=== PATIENT | female | born 1945 | race Caucasian/White ===

== ENCOUNTER 2023-08-23 00:38 | Day surgery (SDC) | payer MEDICARE, SELFPAY ==
--- NOTE | 2023-08-16 15:34 | PC.NURSE ---
Report to the Outpatient Waiting Room, entrance under the green pavilion located off [facility], at time ___1130____ on date __08/23/23 . Planned Procedure Time: __1330 . Time changes happen often and if your time is changed the preop area will call you the afternoon before. - You and your visitor will be asked to self-screen and do not enter if you have any COVID symptoms. - A mask is optional within the hospital at this time. Patients may have clear liquids (water, carbonated beverages, clear teas, apple juice) until 3 hours prior to surgery with a maximum of 20 ounces. - No food from midnight until time of surgery - Infants may have breast milk until 4 hours before surgery, formula 6 hours prior to surgery. - Children will be allowed to drink immediately following surgery. If applicable, please bring a bottle or sippy cup to assist with drinking. Juice, water, soda, and popsicles are readily available. For infants on formula, please bring formula the day of surgery. Pacifiers are allowed. Take the following medications with a SIP of water the morning of surgery: __ATENOLOL DO NOT STOP ANY OF YOUR OTHER PRESCRIPTION MEDICATIONS PRIOR TO SURGERY ?EXCEPT THE FOLLOWING Medications to discontinue per physician ____ALL VITAMINS/SUPPLEMENTS 3 DAYS PRE O P.LAST DOSE 08/19/23 Please no make-up, nail lithuanian, hairspray, perfume, deodorant, or body powder the day of surgery. No jewelry (including any body piercings) or valuables the day of surgery, leave them at home. Please take a shower or bath the night before, or the morning of, surgery with an antibacterial soap. Wear comfortable, loose fitting clothing. Children are encouraged to wear pajamas. - Jewelry must be removed prior to entering the operating room. Rings and piercings that are not removed may be cut off. - The hospital will not accept responsibility for valuables. - Please leave all valuables, including medications, at home the day of surgery. If you are going home after surgery, a licensed laundry route driver must drive you home. - NO public transportation without another adult if you receive anesthesia. - We recommend that an adult stay with you for 24 hours following discharge. - We also recommend that you do not drive, make important decision, drink alcoholic beverages, or take any drugs that were not prescribed by your health care provider for at least 24 hours after your discharge time. For Pediatric surgeries, we recommend two adults accompany the child home. Follow any additional instructions given to you from your surgeon. If you or anyone in your household have experienced Covid symptoms in the past week, please notify your surgeon or the nurse liaison at the phone number below for possible testing. Telephone instructions given to __PT and asked if any additional questions and then verbalized understanding. Patient advised to call surgeon office or pre surgery nurse liaison [phone] if any additional questions.
[2023-08-16 15:51] VITALS: BMI 29.6
--- NOTE | 2023-08-20 11:09 | PM.SD2 ---
Same Day Admit/Disch: HPI History of Present Illness Chief complaint: Right Inguinal Hernia Narrative: Luanne Fontanez is a 78 year old female who had noticed a bulge in the right groin back in May. She has had a previous left inguinal hernia done 20 years or more ago. She had also noticed problems with constipation since the hernia appeared. She was seen in the office and found to have a reducible right inguinal hernia. After thorough discussion, patient was prepared for surgery and is taken to the operating room on 08/23/2023 for robotic laparoscopic right inguinal hernia repair with mesh. [facility] Past Medical History Medical History High cholesterol Hypertension Surgical History Surgical History H/O breast surgery S/P cystoscopy S/P inguinal hernia repair S/P shoulder surgery S/P tonsillectomy Family History Family History Mother Carcinoma of colon CHF (congestive heart failure) Social History Social History Smoking status: Never smoker Alcohol intake: current Drinks per week: 1 Living arrangements: with family Spiritual care concerns: No Same Day Admit/Disch: Med Pre-admit Medications Home Medications Medication Instructions Recorded Confirmed Type aspirin 81 mg tablet,delayed 81 mg PO DAILY 04/03/23 08/16/23 History release atenolol 50 mg tablet 50 mg PO DAILY 04/03/23 08/16/23 History calcium carb-Ca gluc 500 mg 1 tablet PO DAILY 04/03/23 08/16/23 History calcium-magnesium ox-Mg gluc 250 mg tablet (Calcium Magnesium) cholecalciferol (vitamin D3) 10 10 mcg PO DAILY 04/03/23 08/16/23 History mcg (400 unit) capsule citalopram 20 mg tablet 20 mg PO QPM 04/03/23 08/16/23 History coenzyme Q10 10 mg capsule (Co 10 mg PO ONCE 04/03/23 08/16/23 History Q-10) diclofenac sodium 1 % topical gel 2 g topical PRN PRN Pain 04/03/23 08/16/23 History fexofenadine 60 mg tablet (Hilaria 60 mg PO DAILY 04/03/23 08/16/23 History Allergy) simvastatin 20 mg tablet 20 mg PO DAILY 04/03/23 08/16/23 History cinnamon bark 500 mg capsule 500 mg PO DAILY 08/16/23 08/16/23 History (Cinnamon) estradiol 2 mg tablet 2 mg PO 2XW 08/16/23 08/16/23 History krill 1,000 mg-omega-3 230 mg-dha 1 cap PO DAILY 08/16/23 08/16/23 History 60 xg-bns-veapitdrc-astaxan capsule (MegaRed [place]-3 Krill Oil) Review of Systems Review of Systems All systems reviewed & are unremarkable except as noted in HPI and below (HPI and those items noted below) Constitutional Constitutional: Denies chills and Denies fever(s) Cardiovascular Cardiovascular: Denies chest pain, Denies diaphoresis, Denies dyspnea and Denies paroxysmal nocturnal dyspnea Respiratory Respiratory: Denies chest congestion, Denies cough and Denies dyspnea Integumentary/Breasts Skin/Breast: Denies lesions and Denies rash Exam Const: General: comfortable, no acute distress, alert and awake HENMT: Head: normocephalic and atraumatic Mouth: Yes Normal oral and palatal mucosa present Eyes: Conjunctivae: conjunctivae normal Pupils: Equal, round and reactive pupils present EOM: EOMs intact bilaterally Neck: Neck: normal visual inspection, no lymphadenopathy and nontender Resp: Effort & Inspection: normal respiratory effort Auscultation: clear to auscultation bilaterally Cardio: Rate: regular rate Rhythm: regular rhythm Heart sounds: no gallops, no murmurs and no rubs GI: Inspection: non-distended, scar (Left inguinal scar) and visible herniation (Right groin area) GI Palp: Yes Soft to palpation, No Tenderness to palpation present (GI), No Guarding due to palpation present (GI), No Hepatomegaly present, No Splenomegaly present, Yes Hernia present (Reducible right inguinal hernia, no hernia on left side), No Palpable mass present, N
[2023-08-23] VITALS (9 sets, daily range): BP systolic 107–172; BP diastolic 58–81; PULSE 64–85; RESP 16–18; TEMP 36.3–37.1; O2SAT 94–100; BMI 29.7
[2023-08-23] MEDS: LACTATED RINGERS 1,000 ML 30 ML IV CONT ×2 (09:30→13:30)
--- NOTE | 2023-08-23 09:53 | WPDANESEPPF ---
Anes - Initial Pre Proc Eval Procedure: Operation Date: 08/23/23 10:30 Proposed Procedures p Robotic Laparoscopic Right Inguinal Hernia Repair with Mesh - Corky Greene MD Date/Time: 08/23/23 09:53 Surgeon: Corky Greene MD Pre Op Diagnosis: Right Inguinal Hernia Patient Data Age: 78 Gender: F Height: 1.65 m Weight: 80.75 kg Allergies Allergy/AdvReac Type Severity Reaction Status Date / Time No Known Allergies Allergy Verified 08/16/23 15:13 Home Medications Medication Instructions Recorded Confirmed Type aspirin 81 mg tablet,delayed 81 mg PO DAILY 04/03/23 08/16/23 History release atenolol 50 mg tablet 50 mg PO DAILY 04/03/23 08/16/23 History calcium carb-Ca gluc 500 mg 1 tablet PO DAILY 04/03/23 08/16/23 History calcium-magnesium ox-Mg gluc 250 mg tablet (Calcium Magnesium) cholecalciferol (vitamin D3) 10 10 mcg PO DAILY 04/03/23 08/16/23 History mcg (400 unit) capsule citalopram 20 mg tablet 20 mg PO QPM 04/03/23 08/16/23 History coenzyme Q10 10 mg capsule (Co 10 mg PO ONCE 04/03/23 08/16/23 History Q-10) diclofenac sodium 1 % topical gel 2 g topical PRN PRN Pain 04/03/23 08/16/23 History fexofenadine 60 mg tablet (Hilaria 60 mg PO DAILY 04/03/23 08/16/23 History Allergy) simvastatin 20 mg tablet 20 mg PO DAILY 04/03/23 08/16/23 History cinnamon bark 500 mg capsule 500 mg PO DAILY 08/16/23 08/16/23 History (Cinnamon) estradiol 2 mg tablet 2 mg PO 2XW 08/16/23 08/16/23 History krill 1,000 mg-omega-3 230 mg-dha 1 cap PO DAILY 08/16/23 08/16/23 History 60 pn-sck-qmwiuvefb-astaxan capsule (MegaRed [place]-3 Krill Oil) Laboratory Tests 08/23/23 09:32 Blood Type Pending Antibody Screen Pending Patient hx anesthesia problems: none Family hx anesthesia problems: none Results Review: All pre-operative results and documents have been reviewed as part of the pre-operative evaluation. PMFSH Past Medical History Medical History High cholesterol Hypertension Surgical History Surgical History H/O breast surgery S/P cystoscopy S/P inguinal hernia repair S/P shoulder surgery S/P tonsillectomy Family History Family History Mother Carcinoma of colon CHF (congestive heart failure) Social History Social History Smoking status: Never smoker Alcohol intake: current Drinks per week: 1 Living arrangements: with family Spiritual care concerns: No Anes - Eval Final PreProcedure Day of Procedure 08/23/23 09:53 Patient weight: overweight Heart: regular rate and rhythm Lungs: clear to auscultation Airway: Mallampati scale class II Neurological: alert and oriented Last oral intake: >/= 8 hours ASA classification: II Emergent: no Anesthetic plan: proceed Anesthesia type and monitoring: general ETT and standard monitoring Results Review: All pre-operative results and documents have been reviewed as part of the pre-operative evaluation. Informed Consent: The patient's anesthetic plan and its attendant risks and benefits were discussed with the patient/family/POA. Questions were solicited and answers provided to the satisfaction of the patient/family/POA.
[2023-08-23] MEDS: KETOROLAC 15 MG/ML VIAL (*BKC) IV PUSH (09:58)
[2023-08-23] MEDS: ACETAMINOPHEN 500 MG TABLET 1000 MG PO (09:58)
--- NOTE | 2023-08-23 10:20 | WPDHPUPDATE1 ---
History and Physical Update Update Date/Time: 08/23/23 10:20 History and Physical has been reviewed, including an updated exam of the patient. There are NO changes in the patient's condition. Risks, benefits, and alternatives have been discussed and questions answered. Patient agrees to proceed with procedure.
[2023-08-23] MEDS: ceFAZolin 2 GM/D5W 50 ML 2 GM/50 ML BAG IVPB (11:24)
[2023-08-23] MEDS: BUPIVACAINE/EPINEPHRINE 0.5% 50 ML VIAL INFILTRATE (11:46)
--- NOTE | 2023-08-23 13:38 | W.PM.PROC2 ---
Procedure Note - Detailed Date of Procedure 08/23/23 Pre-op Diagnosis Right Inguinal Hernia Post-op Diagnosis Same Procedure Performed Robotic laparoscopic repair right inguinal hernia with mesh Surgeon Corky Greene MD Trailer Rental Clerk Kenisha LO Anesthesia General and Local Indications Patient has a longstanding history of a bulge in the right groin. She had been told she has a hernia. It has gotten larger and is now bothersome. She was seen in the office and is taken to surgery now for robotic repair Findings This was a large indirect hernia. Description of Procedure Patient was taken to surgery and induced into general anesthesia. The abdomen was prepped and draped. The anticipated positions of the 3 trocars were marked on the skin. Local was infiltrated into the trocar site that was closest to the umbilicus. Incision was made and the varies needle was introduced. Saline drop technique was used to check for intraperitoneal location. We then insufflated through the varies needle. After adequate distension, and applied Medical 5 mm optical trocar with camera was then placed in the abdominal cavity. We then placed 1st the right sided robotic 8 mm trocar followed by the left-sided 8 mm robotic trocar both under direct visualization. The 5 mm trocar was then removed and replaced with a 3rd robotic trocar of the same size. Patient was placed in Trendelenburg. The robot was brought into the field and position. We docked the robotic arms and then placed the camera in the abdomen. The camera was targeted. We then placed the retractile and dissecting scissor ports. These were positioned appropriately. The surgeon then broke scrub and went to the robotic console. A peritoneal flap was was created starting at about the level of the anterior superior iliac spine. This started last laterally and proceeded medially beyond the epigastric vessels to the median umbilical ligament. The flap was created starting laterally and then proceed eating medially. Once we reached the medial aspect, dissection was carried down close to the rectus abdominus muscle and down to the pubis. Dissection turned back to the lateral aspect and the flap was created further in this area. We then turned our attention to area the hernia. Using traction on the peritoneal flap and the hernia sac, the sac was carefully reduced and dissected free of vascular structures. It was quite a large sac. The round ligament was kept in place. There were some lipomas in the area the sac and these were removed. Eventually the sac was dissected out completely and from the vascular structures posterior to the indirect defect. I then ensured that the dissection of the pubis and Isaac's ligament was adequate and proceeded beyond the midline. I dissected at least a cm posterior to the pubis and Isaac's ligament as well. I went back laterally and ensured that the flap was well beyond the pectinate line and would not get under the posterior aspect of the mesh. A 17 x 12 cm 3DMax right mesh was introduced. It was positioned appropriately over the defect. 3-0 Vicryl suture were introduced and the mesh was sutured 1st to Isaac's ligament and then anteriorly to the abdominal wall with a 3-0 Vicryl suture. A 2 0 V lock suture was then used and the peritoneal flap was closed. Another piece of Vicryl was introduced and a hole in the lower aspect of the flap was closed with this 3-0 Vicryl. We then removed all of the suture and needles. Repair looked quite good. The robot was undocked. We evacuated CO2 and removed the trocar sleeves. Skin wounds were closed with subcuticular 4-0 Monocryl skin suture. The wounds were dressed with Exofin surgical adhesive. Patient was awakened and taken to recovery in good condition. Sponge and needle counts were correct x2. Implants 17 x 12 cm mid 3DMax mesh right Estimated Blood Loss -5 Drains No Packing No Pathology None sent Complications
[2023-08-23] MEDS: oxyCODONE HCL (*CRX) 5 MG TAB IR PO (15:45)
== END 2023-08-23 16:05 | disposition home or self-care (01) ==
PROVIDERS: PCP Family Medicine; Visit Provider Surgery
PROC: 8E0Y4CZ Robotic Assisted Procedure of Lower Extremity, Percutaneous Endoscopic Approach (ICD-10-PCS; CPT 49650; principal; 2023-08-23 10:30)
DX: K40.90 Unilateral inguinal hernia, without obstruction or gangrene, not specified as recurrent (principal); I10 Essential (primary) hypertension; E78.00 Pure hypercholesterolemia, unspecified; Z79.82 Long term (current) use of aspirin
CPT/HCPCS: 49650; S2900; 36415; 86850; 86900; 86901; A9270; C1781; J0690; J1100; J1885; J2371; J2405; J3010; J7120